=== PATIENT | female | born 1965 | race African-American/Black ===

== ENCOUNTER 2017-03-02 23:36 | Emergency (ER) | payer MEDICARE, MEDICAID ==
[2017-03-03] MEDS: RESP: ALBUTEROL 2.5 MG/IPRATROPIUM 0.5 MG NEB (SCH) INH ×2 (00:34)
[2017-03-03] MEDS: predniSONE 20 MG TAB PO (00:45)
== END 2017-03-03 01:38 | disposition home or self-care (01) ==
LOC: NEPD 23:36
DX: J20.9 Acute bronchitis, unspecified (principal); J44.0 Chronic obstructive pulmonary disease with (acute) lower respiratory infection; J45.901 Unspecified asthma with (acute) exacerbation; R07.89 Other chest pain; F17.210 Nicotine dependence, cigarettes, uncomplicated; E78.00 Pure hypercholesterolemia, unspecified; I10 Essential (primary) hypertension
CPT/HCPCS: 87804; 87804-59; 94640; 94664; 99284